=== PATIENT | male | born 1940 | race Caucasian/White ===

== ENCOUNTER 2018-06-21 13:15 | Day surgery (SDC) | payer MEDICARE ==
[2018-06-21] MEDS ORDERED: MIDAZOLAM HCL 2MG/2ML VIAL IV ONE (13:16)
[2018-06-21] MEDS ORDERED: LIDOCAINE 2% MDV (20MG/ML) 20ML VIAL IV ONE (13:16)
[2018-06-21] MEDS ORDERED: PROPOFOL 10 MG/ML VIAL IV ONE (13:16)
--- NOTE | 2018-06-23 14:00 | Operative Note ---
DATE OF SURGERY: 06/21/2018 OPERATION: COLONOSCOPY to the cecum with cold snare polypectomy x1. INDICATION: Prior history of adenomatous polyps. The patient returns at this time for surveillance. He had adenomatous polyps removed 3 years ago by my associate. ANESTHESIA: Intravenous sedation was administered by the department of anesthesiology and included Diprivan titrated to effect. PROCEDURE: Following informed consent from this alert individual including a discussion of the risks and benefits of the procedure and an opportunity for the patient to ask questions, the patient was in the left lateral decubitus position. A digital rectal examination was performed. No abnormalities were noted. Following this, the Olympus [id number] video colonoscope was inserted into the rectum without resistance. The rectal mucosa had a normal appearance with normal folds and distensibility. The colonoscope was advanced up through the colon to the level of the cecum without much difficulty. Extensive diverticulosis was noted in the left colon with flores diverticulosis noted throughout. The cecum was defined by noting the appendiceal orifice and ileocecal valve. From the base of the cecum, the colonoscope was then slowly withdrawn. The colon preparation was good. No polyps were noted upon withdrawal until the rectum was reached. In the proximal rectum, there was a sessile 4 mm polyp removed with cold snare polypectomy and suctioned through the colonoscopy into a collection trap. Retroflexion in the rectum demonstrated small internal hemorrhoids. The endoscope was straightened and removed. The patient tolerated the procedure well and was returned to the recovery area in stable condition. IMPRESSION: 1. A 4 mm proximal rectal polyp removed with cold snare polypectomy. 2. Flores diverticulosis. 3. Small internal hemorrhoids. RECOMMENDATIONS: Further recommendations will be forthcoming pending the results of pathology obtained today. Followup will also be with Dr. Nnamdi Kaur. As always, thank you for allowing me to participate in the care of your patient. CC: Dr. Nnamdi BECKER
== END 2018-06-21 15:17 | disposition home or self-care (01) ==
LOC: HOP 13:15
PROVIDERS: ATTEND Internal Medicine Gastroenterology
DX: Z12.11 Encounter for screening for malignant neoplasm of colon (principal); Z86.010 Personal history of colon polyps; K62.1 Rectal polyp; K57.30 Diverticulosis of large intestine without perforation or abscess without bleeding; K64.8 Other hemorrhoids; I10 Essential (primary) hypertension; E78.00 Pure hypercholesterolemia, unspecified; E11.9 Type 2 diabetes mellitus without complications